=== PATIENT | female | born 1940 | race Caucasian/White ===

== ENCOUNTER 2017-07-27 01:17 | Emergency (ER) | payer MEDICARE ==
[~2017-07-27] VITALS: Ht 157.5 cm; Wt 70.3 kg
[2017-07-27] MEDS ORDERED: FAMOTIDINE 20 MG TAB PO ONE (01:30)
[2017-07-27 01:35] VITALS: BP 141/76
[2017-07-27 01:52] LABS: Basophils # (auto) 0.1 uL; Eosinophils # (auto) 0.2 uL; Eosinophils % (auto) 1.7 % (0.0-7.0); Hematocrit 40.5 % (36.0-46.0); Hemoglobin 14.1 g/dL (12.2-16.2); Lymphocytes # (auto) 3.1 uL; Lymphocytes % (auto) 34.1 % (10.0-50.0); Mean Corpuscular Hemoglobin 31.3 pg (28.0-32.0); Mean Corpuscular Hgb Conc. 34.8 g/dL (32.0-36.0); Mean Corpuscular Volume 89.9 fL (80.0-100.0); Monocytes # (auto) 0.7 uL; Monocytes % (auto) 8.1 % (0.0-12.0); Neutrophils % (auto) 55.1 % (37.0-80.0); Nucleated Red Blood Cells % 0.2 %; Platelet Count (auto) 241 10^3/uL (140-450); Red Cell Distribution Width 13.8 % (11.8-14.3)
[2017-07-27 02:10] LABS: Alanine Aminotransferase 21 U/L (13-56); Albumin 3.4 g/dL (3.4-5.0); Anion Gap 10 (5-15); Aspartate Aminotransferase 20 U/L (15-37); Blood Urea Nitrogen 23 mg/dL (7-18); Calcium 8.7 mg/dL (8.5-10.1); Carbon Dioxide 24 mmol/L (21-32); Chloride 106 mmol/L (98-107); GFR African American 56 mL/min; GFR Non-African American 46 mL/min; Glucose 103 mg/dL (74-106); Potassium 3.6 mmol/L (3.5-5.1); Sodium 140 mmol/L (136-145)
[2017-07-27 02:36] LABS: Alkaline Phosphatase 72 U/L (45-117)
[2017-07-27 02:37] LABS: Bilirubin, Total 0.4 mg/dL (0.2-1.0); Total Protein 7.2 g/dL (6.4-8.2)
== END 2017-07-27 03:15 | disposition left against medical advice (07) ==
LOC: ER 01:22
DX: R07.9 Chest pain, unspecified (principal); Z53.21 Procedure and treatment not carried out due to patient leaving prior to being seen by health care provider
CPT/HCPCS: 36415; 80053; 84484; 85025; 93005